=== PATIENT | female | born 1935 | race African-American/Black ===

== ENCOUNTER → 2017-10-15 | Outpatient (CLI) | payer OTHER, BC ==
[~2017-10-15] MED LIST: AMLODIPINE BESY10 MG PO; ASPIRIN325 PO; BENAZEPRIL HCL20 MG PO; CALTRATE-600 W1 EACH PO; COLACE100 MG PO; FEOSOL PO; LEVAQUIN 500 M500 M2 PO; LOPRESSOR 50 MG50 M1 PO; MULTIVITAMINS; NORCO 5-325 TA1 EACH PO; SIMVASTATIN80 MG PO; TRIAM60 TP; VITAMIN C + RO500 MG PO
== END ==
LOC: RAD 14:24
DX: Z12.31 Encounter for screening mammogram for malignant neoplasm of breast (principal)

== ENCOUNTER → 2018-10-16 | Outpatient (CLI) | payer OTHER, BC | LOC: RAD 14:04 | DX: Z12.31 Encounter for screening mammogram for malignant neoplasm of breast (principal) ==

== ENCOUNTER → 2019-10-22 | Outpatient (CLI) | payer OTHER, BC | LOC: BC 11:28 | DX: Z12.31 Encounter for screening mammogram for malignant neoplasm of breast (principal) ==

== ENCOUNTER → 2020-10-25 | Outpatient (CLI) | payer OTHER, BC | LOC: BC 14:04 | DX: Z12.31 Encounter for screening mammogram for malignant neoplasm of breast (principal) ==